=== PATIENT | female | born 1990 | race Caucasian/White ===

== ENCOUNTER 2023-06-15 04:35 | Emergency (ER) | payer MEDICAID ==
[~2023-06-15] VITALS: Ht 162.6 cm; Wt 54.4 kg
[2023-06-15 04:42] VITALS: BP_SYST 133; PULSE 119; RESP 20; TEMP 98.1; O2SAT 98
[2023-06-15] MEDS ORDERED: MORPHINE 4 MG INJ. 4 MG/ML VIAL IM ONE (05:15)
[2023-06-15] MEDS ORDERED: OXYC-128 PO (05:56)
[2023-06-15 06:02] VITALS: BP_SYST 133; PULSE 119; RESP 20; TEMP 98.1; O2SAT 98
== END 2023-06-15 06:15 | disposition home or self-care (01) ==
LOC: SED 04:35
DX: M25.511 Pain in right shoulder (principal); R10.31 Right lower quadrant pain; Z88.0 Allergy status to penicillin; Z88.5 Allergy status to narcotic agent; Z88.6 Allergy status to analgesic agent; Z79.899 Other long term (current) drug therapy
CPT/HCPCS: 99283; 73030; 96372; J2270